=== PATIENT | male | born 1975 | race Caucasian/White ===

== ENCOUNTER 2022-07-31 20:10 | Emergency (ER) | payer BC, OTHER ==
[2022-07-31] MEDS ORDERED: Sodium Chloride 0.9% 1,000 ML IV ONE (20:31)
[2022-07-31] MEDS ORDERED: Metoclopramide 10 MG/2 ML SDV IVPUSH ONE (20:31)
[2022-07-31] MEDS ORDERED: diphenhydrAMINE 50 MG/ML SDV IVPUSH ONE (20:31)
[2022-07-31 20:44] LABS: BASOPHILS PERCENT AUTO 0.4 % (0.0-1.5); EOSINOPHILS ABSOLUTE AUTO 0.2 K/uL (0.0-0.7); EOSINOPHILS PERCENT AUTO 4.9 % (0.0-7.0); HEMATOCRIT 42.4 % (38.0-50.0); HEMOGLOBIN 15.1 g/dL (13.0-17.0); LYMPHOCYTES ABSOLUTE AUTO 1.4 K/uL (0.6-2.4); MEAN CORPUSCULAR HEMOGLOBIN 30.6 pg (27.0-32.0); MEAN CORPUSCULAR HGB CONC 35.6 g/dL (31.0-37.0); MEAN CORPUSCULAR VOLUME 85.8 fL (80.0-98.0); MONOCYTES ABSOLUTE AUTO 0.4 K/uL (0.0-0.8); MONOCYTES PERCENT AUTO 8.4 % (0.0-15.0); NEUTROPHILS ABSOLUTE AUTO 2.8 K/uL (1.4-5.7); NEUTROPHILS PERCENT AUTO 57.3 % (48.0-80.0); NRBC ABSOLUTE 0 K/uL; PLATELET COUNT,PLT 157 K/uL (150-400); RED BLOOD CELL COUNT 4.94 M/uL (4.50-5.90)
[2022-07-31 21:12] LABS: A/G RATIO 1.2 (0.9-1.6); ALBUMIN 3.9 g/dL (3.4-5.0); BILIRUBIN TOTAL 0.3 mg/dL (0.2-1.0); CALCIUM 8.6 mg/dL (8.5-10.1); CARBON DIOXIDE,CO2 22.6 mmol/L (21.0-32.0); CREATININE 1.1 mg/dL (0.8-1.3); EST CRCL DRUG DOSING (CG) 82.05 mL/min; POTASSIUM,K 3.9 mmol/L (3.5-5.1); PROTEIN TOTAL,TP 7.1 g/dL (6.4-8.2)
[2022-07-31] MEDS ORDERED: Ketorolac 30 MG/ML SDV IVPUSH ONE (22:16)
[2022-07-31] MEDS ORDERED: Iopamidol 755 MG/ML 500 ML Multipack Bottle IVPUSH STA (22:21)
== END 2022-07-31 23:11 | disposition home or self-care (01) ==
LOC: MW.ED 20:10
DX: R51.9 Headache, unspecified (principal)
CPT/HCPCS: 36415; 70450; 70496; 70498; 80053; 83735; 85025; 96361; 96374; 96375; 99284; J1200; J1885; J2765; J7030; Q9967